=== PATIENT | female | born 1965 | race Caucasian/White ===

== ENCOUNTER 2016-12-08 14:07 | Emergency (ER) | payer MEDICAID ==
[~2016-12-08] VITALS: Ht 157.5 cm; Wt 91.6 kg
[~2016-12-08 14:07] MED LIST: AMITRIPTYLINE25 MG ORAL; CIPROFLOXACIN500 M2 ORAL; COPAXONE20 MG/1 ML SUBQ; GABAPENTIN400 MG ORAL; IBUPROFEN600 MG ORAL; LEVAQUIN500 MG ORAL; MECLIZINE HCL25 MG PO; NKM; NORCO 5-325 TA1 EAC1 ORAL; NORCO 5-325 TA1 EACH ORAL; ONDANSETRON ODT4 MG PO; PENICILLIN V P500 MG PO; PERIDEX 0.12% O16 OZ ORAL; TAMIFLU75 MG ORAL; TOPIRAMATE25 MG ORAL
[2016-12-08] MEDS ORDERED: [UNRECOGNIZED DRUG - OTHER] (14:39)
[2016-12-08] MEDS ORDERED: OMEPRAZOLE20 M2 ORAL (14:39)
[2016-12-08] MEDS ORDERED: MECLIZINE HCL25 MG ORAL (14:39)
[2016-12-08] MEDS ORDERED: [UNRECOGNIZED DRUG - CODE] PO (14:39)
[2016-12-08] MEDS ORDERED: GILENYA0.5 MG ORAL (14:39)
[2016-12-08 14:49] VITALS: BP 132/77
[2016-12-08] MEDS ORDERED: GUAIFENESIN-CO118 ML ORAL (14:54)
[2016-12-08 15:00] VITALS: BP 132/77
--- NOTE | 2016-12-08 15:09 | Emergency Room Report ---
History of Present Illness General Chief Complaint: Flu Like Symptoms Source: Patient Present Illness HPI Patient is a 51-year-old female who presented after having increased nonproductive cough. She gradual onset of symptoms. Patient denied any fever. She reported having symptoms for approximately 2 weeks. Cough is nonproductive. The patient was noted to have minimal nasal congestion. Patient denied chest pain. She denied shortness of breath. Allergies: Coded Allergies: No Known Allergies (Unverified , 07/12/12) Patient History Past Medical History: see triage record Last Menstrual Period: 3 years ago Now: No Reviewed Nursing Documentation: PMH: Agreed, PSxH: Agreed Nursing Documentation-PMH Hx Cardiac Problems: No Hx Cancer: No Hx Gastrointestinal Problems: No Hx Neurological Problems: Yes - VERTIGO, MIGRAINES, MS Hx Vertigo: Yes Hx Dizziness: Yes Hx Headaches: Yes Hx Neurologic Surgery: No Review of Systems All Other Systems: negative except mentioned in HPI Physical Exam Vital Signs Date Time Temp Pulse Resp B/P Pulse Ox O2 Delivery O2 Flow Rate FiO2 12/08/16 14:28 98.2 66 18 132/77 96 Room Air General Appearance: well appearing, no apparent distress, alert, GCS 15 Head: normocephalic, atraumatic ENT: hearing grossly normal, normal voice Neck: full range of motion, supple Respiratory: no respiratory distress, speaking full sentences Cardiovascular #1: normal inspection Musculoskeletal: normal inspection, back normal, digits/nails normal, no calf tenderness Neurologic: normal inspection, alert, oriented x3, responsive, relocation manager III-XII nml as tested, normal gait Psychiatric: mood/affect normal Skin: no rash Medical Decision Making Diagnostic Impression: Primary Impression: Viral syndrome ER Course Presented for cough. Differential diagnosis included but was not limited to bronchitis, pneumonia, pulmonary embolism, pericarditis, asthma, foreign body. Patient's benign exam and does not appear to require any further imaging or laboratory testing at this time. Patient was given prescription for cough medications. The patient is advised to follow up with primary care doctor in 1- 2 days. Patient is advised to return if any worsening condition or if any changes in status that are concerning. Last Vital Signs Date Time Temp Pulse Resp B/P Pulse Ox O2 Delivery O2 Flow Rate FiO2 12/08/16 15:00 98.2 66 18 132/77 96 Room Air Status: improved Disposition: HOME, SELF-CARE Condition: Stable Scripts Guaifenesin/Codeine Phosphate (GUAIFENESIN-CODEINE LIQUID) 118 Ml Liquid 5 ML ORAL Q6H Y for For Cough, #118 ML 0 Refills Prov: Roldan Renee 12/08/16 Patient Instructions: Upper Respiratory Infection, Adult Roldan Renee December 08, 2016 15:09
== END 2016-12-08 15:52 | disposition home or self-care (01) ==
LOC: EMR 15:06
DX: B34.9 Viral infection, unspecified (principal)
CPT/HCPCS: 99283

== ENCOUNTER 2018-09-28 17:29 | Emergency (ER) | payer MEDICAID, OTHER ==
[~2018-09-28] VITALS: Ht 157.5 cm; Wt 68.0 kg
[~2018-09-28 17:29] MED LIST changes: +GILENYA0.5 MG ORAL; +GUAIFENESIN-CO118 ML ORAL; +MECLIZINE HCL25 MG ORAL; +OMEPRAZOLE20 M2 ORAL; +[UNRECOGNIZED DRUG - CODE] PO; +[UNRECOGNIZED DRUG - OTHER]
[2018-09-28 17:45] VITALS: BP 135/70
--- NOTE | 2018-09-28 17:45 | NUR ---
ED Nurse Note: patient was brought in by ambulance, from home, complaining of unusuall feelings after she took her first dosage of antibiotic. VSS at this time, skin is dry, AAO x 4.
[2018-09-28 18:40] VITALS: BP 135/65
--- NOTE | 2018-09-28 18:40 | NUR ---
ED Nurse Note: Patient is awake, alert, oriented x 4. Patient is being dischrged from medical care. D/C instrution given and patient leaving the hospital with daughter.
--- NOTE | 2018-09-30 21:09 | Emergency Room Report ---
History of Present Illness General Chief Complaint: Generalized Weakness Source: Patient Present Illness HPI 53-year-old female presents ED for evaluation. Patient brought in by EMS complaining of weakness sensation. States that she took amoxicillin and started to feel tingling sensation shortly after. Patient has no known allergy to amoxicillin. States that it was not prescribed to her but given to her by a friend. Patient states she was having some runny nose, cough, congestion and sore throat for the last few days. Denies fevers or chills. States she has history of MS. Is compliant with her medications. No other aggravating relieving factors. Denies any other associated symptoms Allergies: Coded Allergies: GLATIRAMER (COPOLYMER 1) (Unverified Allergy, Unknown, 09/28/18) Patient History Past Medical History: migraines Past Surgical History: none Pertinent Family History: none Social History: Denies: smoking, alcohol use, drug use Now: No Immunizations: UTD Reviewed Nursing Documentation: PMH: Agreed; PSxH: Agreed Nursing Documentation-PMH Hx Cardiac Problems: No Hx Cancer: No Hx Gastrointestinal Problems: No Hx Neurological Problems: Yes - VERTIGO, MIGRAINES, MS Hx Vertigo: Yes Hx Dizziness: Yes Hx Headaches: Yes Hx Neurologic Surgery: No Review of Systems All Other Systems: negative except mentioned in HPI Physical Exam Vital Signs Date Time Temp Pulse Resp B/P (MAP) Pulse Ox O2 Delivery O2 Flow Rate FiO2 09/28/18 17:19 98.4 63 16 153/91 95 Room Air Sp02 EP Interpretation: reviewed, normal General Appearance: no apparent distress, alert, GCS 15, non-toxic Head: normocephalic, atraumatic Eyes: bilateral eye normal inspection, bilateral eye PERRL ENT: hearing grossly normal, normal pharynx, no angioedema, normal voice Neck: full range of motion, supple/symm/no masses Respiratory: chest non-tender, lungs clear, normal breath sounds, speaking full sentences Cardiovascular #1: regular rate, rhythm, no edema Cardiovascular #2: 2+ carotid (R), 2+ carotid (L), 2+ radial (R), 2+ radial (L) , 2+ dorsalis pedis (R), 2+ dorsalis pedis (L) Gastrointestinal: normal bowel sounds, non tender, soft, non-distended, no guarding, no rebound Rectal: deferred Genitourinary: normal inspection, no CVA tenderness Musculoskeletal: back normal, gait/station normal, normal range of motion, non- tender Neurologic: alert, oriented x3, responsive, surgery tech III-XII nml as tested, motor strength/tone normal, sensory intact, speech normal Psychiatric: judgement/insight normal, memory normal, mood/affect normal, no suicidal/homicidal ideation Reflexes: 3+ bicep (R), 3+ bicep (L), 3+ tricep (R), 3+ tricep (L), 3+ knee (R) , 3+ knee (L) Skin: normal color, no rash, warm/dry, well hydrated Lymphatic: no adenopathy Medical Decision Making Diagnostic Impression: Primary Impression: Acute upper respiratory infection, unspecified Additional Impression: Adverse reaction to drug Qualified Codes: T50.905A - Adverse effect of unspecified drugs, medicaments and biological substances, initial encounter ER Course Hospital Course 53 yo F present with tingling sensation in her throat, tongue after taking amoxicillin Differential diagnoses include: URI, pharyngitis, allergic reaction Clinical course Patient placed on stretcher. After initial history, physical exam reveals a middle aged female in no acute distress. Bilateral TM unremarkable. No pharyngeal erythema. No tonsillar exudates. No lymphadenopathy. lungs clear. abdomen soft. Cranial nerves II through XII grossly intact No signs of allergic reaction or anaphylaxis. No urticaria. Vital stable. No signs of bacterial infection. Likely upper respiratory infection. Discussed findings with patient. Best for now to avoid amoxicillin until she is evaluated by her neurologist. However this is a upper respiratory infection which is viral. Self-limited. Does not require antibiotics at this time. Patient and family display understanding. Safely discharged with close outpatient follow-up Diagnosis - URI, adverse reaction to drug Stable and discharged home. Instructed to followup with PMD/neurology. Return to ED if symptoms recur or worsen Last Vital Signs Date Time Temp Pulse Resp B/P (MAP) Pulse Ox O2 Delivery O2 Flow Rate FiO2 09/28/18 18:40 98.0 62 20 135/65 100 Room Air Status: improved Disposition: HOME, SELF-CARE Condition: Stable Referrals: NON PHYSICIAN (PCP) [facility] Anna Porras. [facility] Patient Instructions: Upper Respiratory Infection, Adult, [id number] William Watkins MD Sep 30, 2018 21:09
== END 2018-09-28 18:45 | disposition home or self-care (01) ==
LOC: EDBD 17:29 → EMR 18:12
DX: J06.9 Acute upper respiratory infection, unspecified (principal); T36.0X5A Adverse effect of penicillins, initial encounter; R20.2 Paresthesia of skin; R53.1 Weakness
CPT/HCPCS: 99282